=== PATIENT | female | born 1945 | race Caucasian/White ===

== ENCOUNTER 2017-03-09 06:52 | Day surgery (SDC) | payer MEDICARE ==
[~2017-03-09] VITALS: Ht 163.8 cm; Wt 74.8 kg
[~2017-03-09 06:52] MED LIST: BAYER CHEWABLE81 MG; ESTRACE 0.5 MG0.5 MG PO; HYDROCHLOROTH12.5 M1 PO; LOPRESSOR25 MG PO; PRAVACHOL20 MG PO; PRILOSEC20 MG PO; PRINIVIL20 MG PO; ZOLOFT25 MG PO; ZYRTEC10 MG PO
[2017-03-09 07:35] LABS: HEMATOCRIT 44.7 % (36.0-48.0); HEMOGLOBIN 14.6 g/dL (12-16); MCH 27.9 pg (26.0-34.0); MCHC 32.7 g/dL (31.0-37.0); MCV 85.3 fL (80.0-100.0); MEAN PLATELET VOLUME 11.4 fL (7.4-10.4); RBC 5.24 10x6/uL (4.00-5.40); RDW 14.9 % (11.5-14.5); WBC 5.8 10x3/uL (4.8-10.8)
[2017-03-09 07:58] LABS: ANION GAP 10.7 mmol/L (8-16); CALCIUM 9.6 mg/dL (8.5-10.1); CARBON DIOXIDE 31.5 mmol/L (21.0-32.0); CREATININE - SERUM 1.1 mg/dL (0.6-1.3); POTASSIUM - SERUM 4.2 mmol/L (3.5-5.1)
[2017-03-09 08:17] VITALS: BP 132/87; Ht 163.8 cm; Wt 74.8 kg
--- NOTE | 2017-03-16 09:26 | OP ---
PATIENT NAME: LISSETTE EVERETT MEDICAL RECORD: [id number] :49 LOCATION:D.OPS ADMISSION DATE: SURGEON: CHARMAINE WOLF DPM DATE OF OPERATION: 03/09/2017 PREOPERATIVE DIAGNOSES: 1. Posterior calcaneal spur, left foot. 2. Achilles tendon disruption, left foot. POSTOPERATIVE DIAGNOSES: 1. Posterior calcaneal spur, left foot. 2. Achilles tendon disruption, left foot. PROCEDURES: 1. Gastroc recession, left leg. 2. Posterior calcaneal spur removal, left foot. 3. Repair of Achilles tendon, left foot. ANESTHESIA: Preoperative popliteal block per the Anesthesia Department as well as general anesthesia. HEMOSTASIS: Left thigh tourniquet at 350 mmHg. PREOPERATIVE DETAILS: The patient was taken to the OR and following induction of general anesthesia, was placed on the operating table in a prone position. The left extremity was then prepped and draped in the usual aseptic technique followed by exsanguination of the extremity and inflation of tourniquet. PROCEDURE #1: Gastroc recession, left leg. A 15-blade was used to create a 3.5-4 cm linear incision over the posterior aspect of the left gastroc aponeurosis. The incision was deepened down through subcutaneous tissue bluntly to the peritenon, which was incised longitudinally exposing the aponeurosis with the foot in dorsiflexion. A V-cut was made through the aponeurosis allowing adequate dorsiflexion of the ankle joint. The wound was flushed. The skin was closed with skin olree. PROCEDURE #2: Excision of posterior calcaneal spur. An incision was made over the posterior aspect of the left posterior heel overlying the coursing of the Achilles tendon at its insertion. The incision was deepened down through subcutaneous tissue being sure to protect the skin and subcutaneous tissue. The Achilles tendon and subcutaneous tissue was freed from the Achilles tendon. A 15-blade was used to resect and free the Achilles tendon from the insertion. There was noted to be significant spurring within the tendon as well as calcifications within the tendon, which were excised at this time with a scalpel and dissection. Following reflection of the Achilles tendon, a sagittal saw was used to resect the posterior calcaneal spurring. A good smooth surface was then noted. The wound was flushed. PROCEDURE #3: Repair of Achilles tendon. Utilizing a suture bridge technique, the Achilles tendon was repaired utilizing 4 anchors back to the calcaneus in a good rigid fashion. Following repair, the foot was able to be put in dorsiflexion without interruption of the repair. The wound was flushed. The deep tissue was repaired with 2-0 Vicryl, the subcutaneous tissue with 4-0 Rapide and the skin was closed with 4-0 Rapide in a subcuticular technique followed by Dermabond. Adaptic, 4 x 4s and Conform were used to dress the wound OPERATIVE REPORT [id number] LISSETTE EVERETT followed by application of a modified Gimenez compression dressing. Tourniquet was deflated. POSTOPERATIVE DETAILS: The patient tolerated the procedure well and left the OR with vital signs stable and vascular status at preoperative levels. The patient was transported to recovery per anesthesia in stable condition. TRANSINT:[id number] Voice Confirmation ID: [id number] DOCUMENT ID: [id number] CHARMAINE WOLF DPM at 0926 CC: [id number] DICTATION DATE: 03/09/17 1056 ORGAN INSTALLER: 03/09/[address] [facility] 03/09/17 [facility] [address] [place] [address]
== END 2017-03-09 13:20 | disposition home or self-care (01) ==
LOC: D.OPS 06:52 → D.PAN 09:15 → D.OPS 13:20
PROVIDERS: Anesthesiology
DX: S86.012A Strain of left Achilles tendon, initial encounter (principal); M77.32 Calcaneal spur, left foot; I10 Essential (primary) hypertension; G47.30 Sleep apnea, unspecified; K21.9 Gastro-esophageal reflux disease without esophagitis; M19.90 Unspecified osteoarthritis, unspecified site; Z01.812 Encounter for preprocedural laboratory examination